=== PATIENT | female | born 1970 | race Caucasian/White ===

== ENCOUNTER 2022-10-24 08:19 | Emergency (ER) | payer BC ==
[~2022-10-24] VITALS: Ht 170.2 cm; Wt 81.8 kg
[2022-10-24 08:45] LABS: BASOPHILS % (AUTO) 0.7 % (0-1); EOSINOPHILS # (AUTO) 0.2 X10'3 (0-0.9); EOSINOPHILS % (AUTO) 2.6 % (0-6); HEMATOCRIT 38.5 % (35.0-45.0); HEMOGLOBIN 12.5 g/dl (12.0-16.0); LYMPHOCYTES # (AUTO) 1.2 X10'3 (1.1-4.8); LYMPHOCYTES % (AUTO) 19.4 % (21-51); MEAN CORPUSCULAR HEMOGLOBIN 27.3 PG (27.0-31.0); MEAN CORPUSCULAR HGB CONC 32.4 g/dL (33.0-36.5); MEAN CORPUSCULAR VOLUME 84.5 FL (78-98); MEAN PLATELET VOLUME 9.1 FL (7.4-10.4); MONOCYTES # (AUTO) 0.6 X10'3 (0-0.9); MONOCYTES % (AUTO) 8.8 % (2-12); NEUTROPHILS # (AUTO) 4.3 X10'3 (1.8-7.7); NEUTROPHILS % (AUTO) 68.5 % (42-75); PLATELET COUNT 232 X10'3 (140-440); RED BLOOD COUNT 4.55 X10'6 (4.20-5.60); RED CELL DISTRIBUTION WIDTH 13.7 % (11.5-14.5); WHITE BLOOD COUNT 6.3 X10'3 (4.5-11.0)
[2022-10-24 09:28] LABS: ALANINE AMINOTRANSFERASE 18 U/L (12-78); ALBUMIN 3.7 G/DL (3.4-5.0); ALBUMIN/GLOBULIN RATIO 0.8 (1.1-1.5); ALKALINE PHOSPHATASE 70 IU/L (46-116); ANION GAP 7 (8-16); ASPARTATE AMINO TRANSFERASE 18 U/L (10-37); BILIRUBIN,TOTAL 0.3 MG/DL (0.1-1.0); BLOOD UREA NITROGEN 10 MG/DL (7-18); BUN/CREATININE RATIO 14.9 (6.6-38.0); CALCIUM 9.1 MG/DL (8.5-10.1); CHLORIDE 104 MMOL/L (99-107); CREATININE 0.67 MG/DL (0.40-0.90); GLUCOSE 103 MG/DL (70-104); MAGNESIUM 2.2 MG/DL (1.5-2.4); POTASSIUM 3.8 MMOL/L (3.5-5.1); SODIUM 139 MMOL/L (135-145); TOTAL CARBON DIOXIDE 27.6 MMOL/L (24-32); TOTAL PROTEIN 8.1 G/DL (6.4-8.2); eGFR > 90 ML/MIN
[2022-10-24 11:30] VITALS: BP 159/88
== END 2022-10-24 12:00 | disposition home or self-care (01) ==
LOC: ER 08:20
DX: I16.0 Hypertensive urgency (principal); R00.2 Palpitations; I11.0 Hypertensive heart disease with heart failure; I50.9 Heart failure, unspecified
CPT/HCPCS: 36415; 71045; 80053; 83735; 83880; 84484; 85025; 93005; 99285

== ENCOUNTER 2022-10-29 13:47 | Emergency (ER) | payer BC ==
[~2022-10-29] VITALS: Ht 170.2 cm; Wt 80.0 kg
[2022-10-29 14:05] VITALS: BP 158/88
[2022-10-29 14:24] LABS: BASOPHILS # (AUTO) 0.1 X10'3 (0-0.2); BASOPHILS % (AUTO) 0.8 % (0-1); EOSINOPHILS # (AUTO) 0.2 X10'3 (0-0.9); EOSINOPHILS % (AUTO) 2.7 % (0-6); HEMATOCRIT 40.7 % (35.0-45.0); HEMOGLOBIN 13.5 g/dl (12.0-16.0); LYMPHOCYTES # (AUTO) 1.7 X10'3 (1.1-4.8); LYMPHOCYTES % (AUTO) 25.5 % (21-51); MEAN CORPUSCULAR HEMOGLOBIN 27.8 PG (27.0-31.0); MEAN CORPUSCULAR VOLUME 84.1 FL (78-98); MEAN PLATELET VOLUME 9.7 FL (7.4-10.4); MONOCYTES # (AUTO) 0.4 X10'3 (0-0.9); MONOCYTES % (AUTO) 6.4 % (2-12); NEUTROPHILS # (AUTO) 4.3 X10'3 (1.8-7.7); NEUTROPHILS % (AUTO) 64.6 % (42-75); PLATELET COUNT 217 X10'3 (140-440); RED BLOOD COUNT 4.84 X10'6 (4.20-5.60); RED CELL DISTRIBUTION WIDTH 13.8 % (11.5-14.5); WHITE BLOOD COUNT 6.7 X10'3 (4.5-11.0)
[2022-10-29 14:37] LABS: ALANINE AMINOTRANSFERASE 18 U/L (12-78); ALBUMIN 4.1 G/DL (3.4-5.0); ALBUMIN/GLOBULIN RATIO 0.8 (1.1-1.5); ALKALINE PHOSPHATASE 82 IU/L (46-116); ANION GAP 6 (8-16); ASPARTATE AMINO TRANSFERASE 20 U/L (10-37); BILIRUBIN,TOTAL 0.3 MG/DL (0.1-1.0); BLOOD UREA NITROGEN 10 MG/DL (7-18); BUN/CREATININE RATIO 12.2 (6.6-38.0); CALCIUM 9.6 MG/DL (8.5-10.1); CHLORIDE 103 MMOL/L (99-107); CREATININE 0.82 MG/DL (0.40-0.90); GLUCOSE 94 MG/DL (70-104); POTASSIUM 3.6 MMOL/L (3.5-5.1); SODIUM 141 MMOL/L (135-145); TOTAL CARBON DIOXIDE 31.8 MMOL/L (24-32); TOTAL PROTEIN 9.1 G/DL (6.4-8.2); eGFR 73 ML/MIN
[2022-10-29] MEDS ORDERED: HYDR-3686 PO (17:10)
[2022-10-29] MEDS ORDERED: CLON0.1T PO (17:10)
== END 2022-10-29 18:06 | disposition home or self-care (01) ==
LOC: ER 13:48
DX: R00.2 Palpitations (principal); Z20.822 Contact with and (suspected) exposure to COVID-19; F41.9 Anxiety disorder, unspecified; R05.9 Cough, unspecified; R09.81 Nasal congestion; R53.83 Other fatigue; I11.0 Hypertensive heart disease with heart failure; Z98.890 Other specified postprocedural states; Z79.899 Other long term (current) drug therapy
CPT/HCPCS: 36415; 80053; 83735; 83880; 84484; 85025; 87502; 87503; 87635; 93005; 99284; C9803

== ENCOUNTER 2023-08-16 05:58 | Inpatient (IN) | payer BC ==
[~2023-08-16] VITALS: Ht 170.2 cm; Wt 96.1 kg
[~2023-08-16 05:58] MED LIST: CLON0.1T PO
[2023-08-16] MEDS ORDERED: aspirin 81mg tab.chew PO ONE (08:55)
[2023-08-16] MEDS ORDERED: nitroGLYCERIN 0.2mg/hour patch TD ONE (08:55)
[2023-08-16] MEDS ORDERED: furosemide 10 MG/1 ML 10ml inj IV ONE (08:55)
[2023-08-16] MEDS ORDERED: metoprolol tartrate 1mg/ml inj IV ONE (08:55)
[2023-08-16] MEDS ORDERED: morphine 4 MG/ML inj SYRINge IV ONE (08:55)
[2023-08-16] MEDS ORDERED: ondansetron/PF 4mg/2ml inj IV ONE (08:55)
[2023-08-16] MEDS ORDERED: pantoprazole 40 MG vial IV ONE (08:55)
[2023-08-16] MEDS ORDERED: iohexol 350MG/ML 100ml bottle IV ONE (09:01)
[2023-08-16] MEDS ORDERED: pantoprazole 40MG/NS 100ML BAG 100 ML IV ONE (09:10)
[2023-08-16 09:30] LABS: BASOPHILS # (AUTO) 0.1 X10'3 (0-0.2); BASOPHILS % (AUTO) 0.9 % (0-1); EOSINOPHILS # (AUTO) 0.2 X10'3 (0-0.9); EOSINOPHILS % (AUTO) 4.1 % (0-6); HEMATOCRIT 37.5 % (35.0-45.0); HEMOGLOBIN 12.3 g/dl (12.0-16.0); LYMPHOCYTES # (AUTO) 1.7 X10'3 (1.1-4.8); LYMPHOCYTES % (AUTO) 29.9 % (21-51); MEAN CORPUSCULAR HEMOGLOBIN 28.1 PG (27.0-31.0); MEAN CORPUSCULAR HGB CONC 32.9 g/dL (33.0-36.5); MEAN CORPUSCULAR VOLUME 85.6 FL (78-98); MONOCYTES # (AUTO) 0.5 X10'3 (0-0.9); MONOCYTES % (AUTO) 9.7 % (2-12); NEUTROPHILS # (AUTO) 3.1 X10'3 (1.8-7.7); NEUTROPHILS % (AUTO) 55.4 % (42-75); PLATELET COUNT 211 X10'3 (140-440); RED BLOOD COUNT 4.37 X10'6 (4.20-5.60); RED CELL DISTRIBUTION WIDTH 13.6 % (11.5-14.5); WHITE BLOOD COUNT 5.6 X10'3 (4.5-11.0)
[2023-08-16 10:01] LABS: ALANINE AMINOTRANSFERASE 26 U/L (12-78); ALBUMIN 3.6 G/DL (3.4-5.0); ALBUMIN/GLOBULIN RATIO 0.8 (1.1-1.5); ALKALINE PHOSPHATASE 76 IU/L (46-116); ANION GAP 9 (8-16); ASPARTATE AMINO TRANSFERASE 20 U/L (10-37); BILIRUBIN,TOTAL 0.4 MG/DL (0.1-1.0); BLOOD UREA NITROGEN 8 MG/DL (7-18); BUN/CREATININE RATIO 15.1 (10.0-20.0); CALCIUM 9.2 MG/DL (8.5-10.1); CHLORIDE 105 MMOL/L (99-107); CREATININE 0.53 MG/DL (0.40-0.90); GLUCOSE 94 MG/DL (70-104); MAGNESIUM 2.3 MG/DL (1.5-2.4); PHOSPHORUS 3.9 MG/DL (2.3-4.5); POTASSIUM 3.6 MMOL/L (3.5-5.1); PRO BRAIN NATRIURETIC PEPTIDE 33 PG/ML (0-125); SODIUM 141 MMOL/L (135-145); TOTAL CARBON DIOXIDE 27.5 MMOL/L (24-32); TOTAL PROTEIN 8.2 G/DL (6.4-8.2); eCRCL 121 ML/MIN; eGFR > 90 ML/MIN
[2023-08-16 10:06] LABS: LIPASE 24 U/L (16-77)
[2023-08-16 10:36] LABS: BILIRUBIN,URINE NEGATIVE (Neg); CLARITY,URINE CLEAR (Clear); COLOR,URINE YELLOW (Yellow); GLUCOSE, URINE NEGATIVE (Neg); KETONES,URINE NEGATIVE (Neg); LEUKOCYTE ESTERASE ,URINE NEGATIVE (Neg); NITRITES, URINE NEGATIVE (Neg); OCCULT BLOOD,URINE NEGATIVE (Neg); PH,URINE 7.5 (4.8-8.0); PROTEIN,URINE NEGATIVE (Neg); UROBILINOGEN,URINE 0.2 E.U/dL (0.2-1.0)
[2023-08-16 10:44] LABS: UA COLLECTION TYPE CLN CATCH MIDSTREAM
[2023-08-16 13:11] LABS: APTT 29 SECONDS (22-32); D-DIMER 0.62 MG/L FEU (0-0.50); INR 1.1 INR; PROTHROMBIN TIME 11.4 SECONDS (9.0-12.0)
[2023-08-16] MEDS ORDERED: magnesium hydroxide 30ml (MOM) UD suspension PO PRN (13:35)
[2023-08-16] MEDS ORDERED: acetaminophen 325mg tablet PO PRN ×2 (13:35)
[2023-08-16] MEDS ORDERED: mag hydrox/Alum hydrox/simeth 30ml oral suspension PO PRN (13:35)
[2023-08-16] MEDS ORDERED: ondansetron/PF 4mg/2ml inj IV PRN (13:35)
[2023-08-16] MEDS ORDERED: HYDROcodone/acetaminophen 10/325mg tab PO PRN (13:35)
[2023-08-16] MEDS ORDERED: nitroGLYCERIN 0.4mg SUBLingual tab SL PRN (13:35)
[2023-08-16] MEDS ORDERED: morphine 2 MG/ML inj. syringe IV PRN ×2 (13:35)
[2023-08-16] MEDS ORDERED: CARV-50 PO (15:56)
[2023-08-16] MEDS ORDERED: LOSA-415 PO (15:56)
[2023-08-16] MEDS ORDERED: FURO-150 PO (15:56)
[2023-08-16] MEDS ORDERED: ERGO400C PO (15:56)
[2023-08-16] MEDS ORDERED: POTA-207 PO (15:56)
[2023-08-16] MEDS ORDERED: MULT-1085 PO (15:56)
[2023-08-16] MEDS: HYDROcodone/acetaminophen 5mg/325mg tablet PO PRN ×2 (17:04→23:23)
--- NOTE | 2023-08-16 19:00 | NUR ---
pt arrived to unit from ED with ED transport personnel accompanying pt. Pt was transported via wheelchair and transferred self to bed. Pt is A+Ox4, admitted to chest pain. Pt states she feels the chest pain is from stress she has felt from current job. 22 G to LAC, patent and SL. Tele number [phone] BLL,Siderail x1 per pt request, Call light within reach.
[2023-08-16 19:30] VITALS: BP 113/63; PULSE 68; RESP 16; TEMP 97.6; O2SAT 98
[2023-08-16] MEDS: docusate sod 100mg capsule PO SCH (20:00)
--- NOTE | 2023-08-16 21:35 | NUR ---
provider paged. PAGER ID: [phone] MESSAGE: [id number]. Brooke Del Real Pt states she is takes potassium 20meq po when she takes her furosemide to prevent feeling spasms and was not given any today. please advise. Vickie STEPHEN [phone]
[2023-08-16 22:00] VITALS: BP 136/81; PULSE 70; RESP 11; TEMP 97.2; O2SAT 99
--- NOTE | 2023-08-16 22:34 | NUR ---
provider paged PAGER ID: [phone] MESSAGE: [id number]. Brooke Del Real Pt still c/o spasms and requesting medication for the spasms. Also c/o sinus congestion. Please advise. thank you, Vickie STEPHEN [phone]
[2023-08-16] MEDS ORDERED: hydrOXYzine 25 MG tablet PO PRN (22:40)
[2023-08-17] VITALS (10 sets, daily range): BP systolic 125–171; BP diastolic 74–104; PULSE 77–104; RESP 11–20; TEMP 97–98; O2SAT 94–100
--- NOTE | 2023-08-17 06:41 | NUR ---
Problems reprioritized. Patient report given, questions answered & plan of care reviewed with Shahla STEPHEN. Pt stable at shift change.
[2023-08-17] MEDS: docusate sod 100mg capsule PO SCH (08:00)
[2023-08-17] MEDS ORDERED: aminophylline 250mg/10ml inj. IV PRN (08:10)
[2023-08-17] MEDS ORDERED: nitroGLYCERIN 0.4mg SUBLingual tab SL PRN (08:10)
[2023-08-17] MEDS ORDERED: metoprolol tartrate 1mg/ml inj IV PRN (08:10)
[2023-08-17] MEDS ORDERED: regadenoson 0.4mg/5ml syringe IV PRN (08:10)
[2023-08-17] MEDS ORDERED: furosemide 20MG tablet PO PRN (08:15)
[2023-08-17] MEDS ORDERED: potassium Cl 20 mEq SR tablet PO PRN (08:15)
[2023-08-17 08:37] LABS: BASOPHILS # (AUTO) 0.1 X10'3 (0-0.2); BASOPHILS % (AUTO) 0.9 % (0-1); EOSINOPHILS # (AUTO) 0.2 X10'3 (0-0.9); EOSINOPHILS % (AUTO) 2.5 % (0-6); HEMATOCRIT 38.4 % (35.0-45.0); HEMOGLOBIN 12.6 g/dl (12.0-16.0); LYMPHOCYTES # (AUTO) 1.8 X10'3 (1.1-4.8); LYMPHOCYTES % (AUTO) 25.7 % (21-51); MEAN CORPUSCULAR HGB CONC 32.9 g/dL (33.0-36.5); MEAN CORPUSCULAR VOLUME 85.1 FL (78-98); MEAN PLATELET VOLUME 9.4 FL (7.4-10.4); MONOCYTES # (AUTO) 0.6 X10'3 (0-0.9); NEUTROPHILS # (AUTO) 4.5 X10'3 (1.8-7.7); NEUTROPHILS % (AUTO) 62.9 % (42-75); PLATELET COUNT 221 X10'3 (140-440); RED BLOOD COUNT 4.51 X10'6 (4.20-5.60); RED CELL DISTRIBUTION WIDTH 13.7 % (11.5-14.5); WHITE BLOOD COUNT 7.2 X10'3 (4.5-11.0)
[2023-08-17 09:24] LABS: ALBUMIN 3.6 G/DL (3.4-5.0); ANION GAP 7 (8-16); BLOOD UREA NITROGEN 11 MG/DL (7-18); BUN/CREATININE RATIO 15.3 (10.0-20.0); CALCIUM 9.4 MG/DL (8.5-10.1); CHLORIDE 103 MMOL/L (99-107); CREATININE 0.72 MG/DL (0.40-0.90); GLUCOSE 93 MG/DL (70-104); POTASSIUM 3.4 MMOL/L (3.5-5.1); SODIUM 141 MMOL/L (135-145); TOTAL CARBON DIOXIDE 30.9 MMOL/L (24-32); eCRCL 89 ML/MIN; eGFR 85 ML/MIN
[2023-08-17] MEDS ORDERED: heparin 25,000 UNIT/250ml bag 250 ML IV PRN (10:00)
[2023-08-17] MEDS ORDERED: heparin 10,000 units/1 ML INJ IV PRN (10:00)
[2023-08-17] MEDS ORDERED: heparin 10,000 units/1 ML INJ IV ONE (10:00)
--- NOTE | 2023-08-17 16:30 | NUR ---
Discharge instructions discussed with patient. All questions answered. Pt states she understands all instructions. Pt states she needs a return to work slip signed by the MD. Paged Dr. Fuentes to sign form.
--- NOTE | 2023-08-17 16:58 | NUR ---
Return to work note provided to pt from Dr. Damon. Pt leaving unit via wheelchair.
[2023-08-17] MEDS ORDERED: carVEDilol 12.5mg tablet PO SCH (20:00)
[2023-08-18] MEDS ORDERED: multivitamins, therapeutics tablet PO SCH (08:00)
[2023-08-18] MEDS ORDERED: cholecalciferol (vitamin D3) 400 unit (10mcg) tablet PO SCH (08:00)
[2023-08-18] MEDS ORDERED: losartan 25mg tablet PO SCH (08:00)
== END 2023-08-17 17:11 | disposition home or self-care (01) | DRG 313 ==
LOC: ER 05:59 → ED HOLD 09:35 → UNDOADMOB 13:36 → ED HOLD 13:36 → PCU 3S 19:00 → OBSVTOIN 08-17 09:00 → INTOOBSV 08-17 09:00 → UNDODISIN 08-17 17:11
PROVIDERS: ADMIT Internal Medicine; ATTEND Internal Medicine
DX: R07.89 Other chest pain (principal); I42.9 Cardiomyopathy, unspecified; I11.0 Hypertensive heart disease with heart failure; I50.9 Heart failure, unspecified; Z90.721 Acquired absence of ovaries, unilateral
CPT/HCPCS: 36415; 71045; 71275; 76856; 78452; 80048; 80053; 81003; 83690; 83735; 83880; 84100; 84484; 85025; 85379; 85610; 85730; 86885; 86900; 86901; 87081; 93005; 93017; 93976; 99291; A9500; C9113; G0378; J1940; J2270; J2405; J2785; J3490; Q0177; Q9967

== ENCOUNTER 2025-01-28 21:22 | Emergency (ER) | payer BC ==
[~2025-01-28] VITALS: Ht 170.2 cm; Wt 75.3 kg
[~2025-01-28 21:22] MED LIST changes: +CARV-50 PO; -CLON0.1T PO; +ERGO400C PO; +FURO-150 PO; +LOSA-415 PO; +MULT-1085 PO; +POTA-207 PO
[2025-01-28 21:36] VITALS: PULSE 78; RESP 15; O2SAT 99
[2025-01-28 21:57] LABS: BASOPHILS % (AUTO) 0.5 % (0-1); EOSINOPHILS # (AUTO) 0.2 X10'3 (0-0.9); EOSINOPHILS % (AUTO) 2.7 % (0-6); LYMPHOCYTES # (AUTO) 2.6 X10'3 (1.1-4.8); LYMPHOCYTES % (AUTO) 32.6 % (21-51); MEAN CORPUSCULAR HEMOGLOBIN 27.5 PG (27.0-31.0); MEAN CORPUSCULAR HGB CONC 33.4 g/dL (33.0-36.5); MEAN CORPUSCULAR VOLUME 82.5 FL (78-98); MEAN PLATELET VOLUME 10.3 FL (7.4-10.4); MONOCYTES # (AUTO) 0.4 X10'3 (0-0.9); MONOCYTES % (AUTO) 5.5 % (2-12); NEUTROPHILS # (AUTO) 4.6 X10'3 (1.8-7.7); NEUTROPHILS % (AUTO) 58.7 % (42-75); PLATELET COUNT 212 X10'3 (140-440); RED BLOOD COUNT 4.36 X10'6 (4.20-5.60); RED CELL DISTRIBUTION WIDTH 14.1 % (11.5-14.5); WHITE BLOOD COUNT 7.9 X10'3 (4.5-11.0)
[2025-01-28 22:16] LABS: ALANINE AMINOTRANSFERASE 26 U/L (12-78); ALBUMIN 3.3 G/DL (3.4-5.0); ALBUMIN/GLOBULIN RATIO 0.8 (1.1-1.5); ALKALINE PHOSPHATASE 98 IU/L (46-116); ANION GAP 6 (8-16); ASPARTATE AMINO TRANSFERASE 19 U/L (10-37); BILIRUBIN,TOTAL 0.1 MG/DL (0.1-1.0); BLOOD UREA NITROGEN 15 MG/DL (7-18); BUN/CREATININE RATIO 21.7 (10.0-20.0); CALCIUM 8.7 MG/DL (8.5-10.1); CHLORIDE 107 MMOL/L (99-107); CREATININE 0.69 MG/DL (0.40-0.90); GLUCOSE 168 MG/DL (70-104); POTASSIUM 3.6 MMOL/L (3.5-5.1); SODIUM 142 MMOL/L (135-145); TOTAL CARBON DIOXIDE 29.4 MMOL/L (24-32); TOTAL PROTEIN 7.7 G/DL (6.4-8.2); eCRCL 92 ML/MIN; eGFR 89 ML/MIN
[2025-01-28 22:24] LABS: PRO BRAIN NATRIURETIC PEPTIDE 37 PG/ML (0-125)
[2025-01-29] MEDS ORDERED: SIME80TA15 PO (00:23)
[2025-01-29 00:25] VITALS: BP 162/96; TEMP 98.6
== END 2025-01-29 00:28 | disposition home or self-care (01) ==
LOC: ER 21:22
DX: I11.0 Hypertensive heart disease with heart failure (principal); I50.9 Heart failure, unspecified; R51.9 Headache, unspecified; R42 Dizziness and giddiness
CPT/HCPCS: 36415; 71045; 80053; 83880; 84484; 85025; 93005; 99285

== ENCOUNTER 2025-10-12 13:27 | Emergency (ER) | payer BC ==
[~2025-10-12] VITALS: Ht 170.2 cm; Wt 96.4 kg
--- NOTE | 2025-10-12 13:45 | ELECTROCARDIOGRAPH REPORT ---
[facility] Test Date: 2025-10-12 Test Time: 13:32:36 Pat Name: RUSTY COFFEY Department: EMERGENCY ROOM [id number] Room: Gender: F Patient Admitting Representative: NAOMY : 1970 Requested By: JOHANA OSEGUERA Order Number: [id number] Reading MD: Dr. Chapo Valdez Measurements Intervals [place] Rate: 70 P: 69 RI: 163 QRS: 20 QRSD: 80 T: 2 QT: 397 QTc: 429 Interpretive Statements Sinus rhythm Borderline repolarization abnormality Baseline wander in lead(s) I,II,III,aVR,aVF,V2 Electronically Signed On 10-14-2025 21:14:[address] Chapo Valdez Please click the below link to view image of tracing.
[2025-10-12 14:00] LABS: MEAN PLATELET VOLUME 10.0 FL (7.4-10.4); RED CELL DISTRIBUTION WIDTH 14.3 % (11.5-14.5)
--- NOTE | 2025-10-12 14:10 | Physician Documentation ---
History of Present Illness ~ Chief Complaint: Palpitations Stated Complaint: HIGH BP/PALPITATIONS/DIZZINESS Time Seen by MD: 16:05 HPI This is a 55-year-old female who presents with concern for palpitations and high blood pressure, patient reports symptoms upon waking this morning, reports no chest pain or shortness of breath. Patient additionally reports two weeks of right low back pain radiating into her right thigh which he is using a pain patch for which she believes is driving her blood pressure up. Medication Reconciliation Allergies: Coded Allergies: No Known Allergies (Unverified , 10/12/25) Scheduled Carvedilol* (Coreg*), 1 TABLET PO BID, (Reported) Ergocalciferol (Vitamin D), 1 CAP PO DAILY, (Reported) Losartan Potassium* (Cozaar*), 1 TAB PO DAILY, (Reported) Multivitamin (Multi Vitamin Daily), 1 TAB PO DAILY, (Reported) Scheduled PRN Cyclobenzaprine* (Cyclobenzaprine*), 1 TAB PO Q8H PRN for pain Furosemide* (Lasix*), 1 TAB PO DAILY PRN for EDEMA, (Reported) Potassium Chloride* (K-Dur*), 1 TAB PO DAILY PRN for EDEMA, (Reported) Past Medical History Past Medical History: Congestive Heart Failure, Hypertension Past Surgical History: Alcohol Use: Rarely Drug Use: none Lives In: Home Review of Systems ROS As stated above in the HPI, otherwise all systems are reviewed and negative. Physical Exam Vital Signs: Temperature: 98.1, Source: Temporal, Heart Rate: 72, Respiratory Rate: 18, BP: 164/91, Pulse Oximetry: 99, Weight: 96.400 Oxygen Flow Rate: 0 Physical Exam VITALS: Reviewed and as above. GENERAL: Alert, no apparent distress. HEENT: Normocephalic, atraumatic, PERRL, EOMI, dry mucosa, no erythema RESPIRATORY: Lungs clear, normal breath sounds, no respiratory distress. CHEST: No accessory muscle use, no retractions CV: Regular rate, rhythm, no edema, no murmur, No: JVD GI: Soft, non-tender, bowels sounds present, no rebound, guarding, or rigidity BACK: No CVA tenderness, or swelling MUSCULOSKELETAL: No deformities, no edema SKIN: Warm and dry, no rash NEURO: Oriented x4, No motor or sensory deficit PSYCH: Normal mood and affect, no agitation Progress Progress Note The patient is a 55-year-old female who has multiple complaints including chronic back pain in his requesting a low back x-ray as she states she has sciatic pain she has normal strength the patient also complains of feeling dizzy and some palpitations this morning her cardiac workup is unremarkable. The patient's 12 lead EKG demonstrates a sinus rhythm with a normal axis and nonspecific ST-T abnormalities and was interpreted as a borderline EKG by me at 13 32 Results/Orders Results/Orders Orders - OHLJOHANA GUALLPA MD Chest,Single View (10/12/25 13:44) Monitor (10/12/25 13:44) Saline Lock (10/12/25 13:44) Oxygen (10/12/25 13:44) Lumbar Spine Limited (10/12/25 17:23) Completed Orders - JOHANA OSEGUERA MD Chest,Single View (10/12/25 13:44) Cbc/Diff (10/12/25 13:44) BMP (10/12/25 13:44) PBNP (10/12/25 13:44) Electrocardiogram (10/12/25 13:44) Hs Troponin I W Calculations (10/12/25 13:44) Hs Troponin I W Calculations (10/12/25 15:44) Lumbar Spine Limited (10/12/25 17:23) Vital Signs 10/12/25 10/12/25 10/12/25 10/12/25 13:43 16:24 16:24 16:46 Temp 98.1 Pulse 72 68 Resp 18 18 B/P (MAP) 164/91 187/97 (127) 150/98 (115) Pulse Ox 99 100 O2 Flow Rate 0 0 10/12/25 10/12/25 17:37 18:34 Temp 98.6 Pulse 80 79 Resp 16 18 B/P (MAP) 150/95 (113) 149/94 Pulse Ox 99 99 Laboratory Tests Test 10/12/25 13:42 10/12/25 15:18 White Blood Count 8.2 Red Blood Count 4.47 Hemoglobin 12.0 Hematocrit 37.6 Mean Corpuscular Volume 84.1 Mean Corpuscular Hemoglobin 26.8 L Mean Corpuscular Hemoglobin Concent 31.9 L Red Cell Distribution Width 14.3 Platelet Count 204 Mean Platelet Volume 10.0 Neutrophils (%) (Auto) 63.6 Lymphocytes (%) (Auto) 23.3 Monocytes (%) (Auto) 10.3 Eosinophils (%) (Auto) 2.4 Basophils (%) (Auto) 0.4 Neutrophils # (Auto) 5.2 Lymphocytes # (Auto) 1.9 Monocytes # (Auto) 0.8 Eosinophils # (Auto) 0.2 Basophils # (Auto) 0.0 CBC Comment Sodium Level 141 Potassium Level 3.7 Chloride Level 105 Carbon Dioxide Level 29.6 Anion Gap 6 L Blood Urea Nitrogen 14 Creatinine 0.68 Estimated GFR/1.73 m2 90 BUN/Creatinine Ratio 20.6 H Glucose Level 100 Calcium Level 9.3 Troponin I High Sensitivity 5 6 Pro-B-Type Natriuretic Peptide < 30 Albumin 3.5 Chemistry Comments Troponin I High Sens Percent Delta 20 Troponin I Hi Sens Absolute Change 1 EKG/XRAY/CT/US/VASC/MRI Chest X-Ray : Additional Comments Patient: RUSTY COFFEY Medical Record: [id number] [facility] : 1970, Age: 55 Sex: Female Location: ER Patient Status: REG ER Service Date/Time: 10/12/251343 Ordering Physician: JOHANA OSEGUERA MD Exam: CHEST,SINGLE VIEW CHEST RADIOGRAPH INDICATION: CP TECHNIQUE: Single frontal view of the chest was obtained COMPARISON: DI CHEST,SINGLE VIEW on DOS: 01/28/25, DI CHEST,SINGLE VIEW on DOS: 08/16/23, CHEST,SINGLE VIEW on DOS: 10/24/22 FINDINGS: Lines and Tubes: None Lungs: No focal consolidation. Pleura: No effusion. No pneumothorax. Cardiomediastinal contours: Borderline cardiomegaly. Bones: No acute osseous abnormality. IMPRESSION: No acute cardiopulmonary disease. Electronically Signed by:TG GREEN DO Date & Time: 10/12/251415 Dictated by: TG GREEN DO Dictation date and time: 10/12/251415 Primary Care Provider: NO PRIMARY CARE PROVIDER cc: JOHANA OSEGUERA MD ~ Medical Decision Making Findings MSE performed in triage and patient returned to ED lobby by nursing staff to await available ED room Departure Disposition: 01 HOME / SELF CARE / HOMELESS Impression: Primary Impression: Palpitations Additional Impression: Back pain Qualified Codes: M54.40 - Lumbago with sciatica, unspecified side; G89.29 - Other chronic pain Discharge Instructions: Acute Back Pain, Adult, Palpitations, [id number] Referrals: NO PRIMARY CARE PROVIDER (PCP) Prescriptions Cyclobenzaprine* (Cyclobenzaprine*) 10 Mg Tablet 1 TAB PO Q8H PRN for pain for 10 Days, #30 TAB 0 Refills Prov: JOHANA OSEGUERA MD 10/12/25 SHARMIN BLANCO Oct 12, 2025 14:10 JOHANA OSEGUERA MD Oct 12, 2025 17:05
--- NOTE | 2025-10-12 14:19 | RADIOLOGY REPORT ---
CHEST RADIOGRAPH INDICATION: CP TECHNIQUE: Single frontal view of the chest was obtained COMPARISON: DI CHEST,SINGLE VIEW on DOS: 01/28/25, DI CHEST,SINGLE VIEW on DOS: 08/16/23, CHEST,SINGLE VIEW on DOS: 10/24/22 FINDINGS: Lines and Tubes: None Lungs: No focal consolidation. Pleura: No effusion. No pneumothorax. Cardiomediastinal contours: Borderline cardiomegaly. Bones: No acute osseous abnormality. IMPRESSION: No acute cardiopulmonary disease.
[2025-10-12 14:25] LABS: CREATININE 0.68 MG/DL (0.40-0.90); PRO BRAIN NATRIURETIC PEPTIDE < 30 PG/ML (0-125); TOTAL CARBON DIOXIDE 29.6 MMOL/L (24-32); eCRCL 92 ML/MIN; eGFR 90 ML/MIN
[2025-10-12] MEDS ORDERED: CYCL-1 PO (17:57)
--- NOTE | 2025-10-12 18:09 | RADIOLOGY REPORT ---
INDICATION: fall back pain COMPARISON: None TECHNIQUE: 3 views of the lumbar spine were obtained. FINDINGS/IMPRESSION: Age-indeterminate moderate compression fracture of the superior endplate of L2, likely chronic given appearance on prior CT chest dated 08/16/2023. The alignment is maintained. There is mild loss of intervertebral disc height. Consider CT or MRI in further assessment as clinically indicated.
[2025-10-12 18:34] VITALS: BP 149/94; PULSE 79; RESP 18; TEMP 98.6; O2SAT 99
== END 2025-10-12 18:36 | disposition home or self-care (01) ==
LOC: ER 13:27
DX: R00.2 Palpitations (principal); I11.0 Hypertensive heart disease with heart failure; I50.9 Heart failure, unspecified; Z79.899 Other long term (current) drug therapy; Z98.890 Other specified postprocedural states
CPT/HCPCS: 36415; 71045; 72100; 80048; 83880; 84484; 85025; 93005; 99285; A4615